=== PATIENT | female | born 1945 | race Caucasian/White ===

== ENCOUNTER 2016-10-13 16:35 | Inpatient (IN) | payer MEDICARE ==
[2016-10-13] VITALS (8 sets, daily range): BP systolic 104–128; BP diastolic 70–98; PULSE 89–113; RESP 15–28; O2SAT 93–98
[~2016-10-13] VITALS: Ht 167.6 cm; Wt 120.8 kg
[~2016-10-13 16:35] MED LIST: ALPR0.5T8 PO; ATOR10TA66 PO; FURO40SO4 PO; GLIP2.5T2 PO; HYDR-4003 PO; LISI40TA PO; METO-272 PO; SPIR25TA3 PO; WARF5TAB7 PO
--- NOTE | 2016-10-13 16:48 | ED.REPORT ---
HPI-General Illness Date of Service October 13, 2016 ED Provider: Dr. Tc Waller MD A 70 year old diabetic female with a history of atrial fibrillation, LBBB, known coronary disease (70% right coronary stenosis), heart failure, hypertension and hyperlipidemia presents to the ED via EMS following a severe episode of dizziness that began at 1000 this morning. She describes her dizziness as vertigo stating that "the room was spinning" but denies any visual disturbances or tinnitus in her ears during the episode. Patient has also been experiencing several episodes of emesis, dry mouth, generalized weakness, nausea and intermittent SOB since symptom onset. Daughter reports confusion just prior to EMS arrival. She denies any recent fevers, dysuria or localized weakness. Upon recheck, patient is complaining of sudden onset chest pain and rates the pain as a 9/10. Patient currently takes 200 mg of metoprolol succinate 2 times per day and has been taking as directed. Nursing Notes Stated Complaint: GENERALIZED WEAKNESS Chief Complaint: General Complaint Nursing Notes Reviewed: Yes Allergies: Coded Allergies: procaine (Verified Allergy, Unknown, 10/13/16) Scheduled Atorvastatin Calcium (Atorvastatin Calcium) 20 Mg Tablet 20 MG PO HS Lisinopril (Lisinopril) 40 Mg Tablet 20 MG PO HS Metoprolol Succinate ER (Metoprolol Succinate ER) 200 Mg Tab.er.24h 200 MG PO BID Spironolactone (Spironolactone) 25 Mg Tablet 12.5 MG PO DAILY Torsemide (Torsemide) 20 Mg Tablet 10 MG PO ,,,,,Sa Torsemide (Torsemide) 20 Mg Tablet 20 MG PO every wednesday Warfarin Sodium (Warfarin Sodium) 5 Mg Tablet 5 MG PO Wednesday and Wednesday Warfarin Sodium (Warfarin Sodium) 5 Mg Tablet 2.5 MG PO ,,,Sa,Bacon Scheduled PRN Alprazolam (Alprazolam) 0.5 Mg Tablet 0.5 MG PO PRN DENTIST PRN PRN DENTAL WORK General Time Seen by MD: 16:48 Chief Complaint Weakness Hx Obtained From: Patient Arrived By: Ambulance Sudden in Onset?: No Symptom Duration: Since onset Location: : Chest Quality: Painful Radiation: : Does not radiate Severity: Current: Pain level 9 out of 10 Severity: Maximum: Pain level 9 out of 10 Associated with: Reports: Chest pain, Shortness of breath, Vomiting, Weakness Pertinent Negative: Pt denies other symptoms Recent Healthcare: No recent doctor visit, No recent hospitalization Past Medical History Past Medical History Notes: PCP: Teresa DUKES 2016: Coronary angiography - 70% stenosis in the right proximal vessel Patient seen in ED 04/10/16 for Afib Echocardiogram Report Date: 03/31/2016 Interpretation Summary 1) Moderately dilated left ventricle with mild concentric hypertrophy and severely reduced systolic function (EF 20-25%). 2) Mildly dilated right ventricle with mildly reduced function. 3) Calcific mitral valve apparatus that opens well. Mild mitral regurgitation present. 4) Mildly dilated ascending aorta (diameter 3.7cm) and aortic arch (diameter 3.4cm). 5) No prior Echo available for visual comparison. Report from [facility] showed EF of 40% on Echo 12/05/2015 and today's study shows significant reduction in systolic function. Past Medical History Atrial fibrillation Coronary disease Left bundle branch block Diabetes Hypertension Hypercholesterolemia Past Surgical History Hysterectomy Laminectomy Family History Noncontributory Smoking History Current Every Day Smoker Social History Alcohol Use: Denies alcohol use Drug Use: Denies drug use Other Social History: Good social support, Local resident Ambulatory Status Independent Review of Systems Dry mouth Full Review of Systems Constitutional: Reports: Weakness - generalized, Denies: Chills, Fever Ears / Nose / Throat: Denies: Ear ringing bilateral Respiratory: Reports: Shortness of breath Cardiovascular: Reports: Chest pain (sudden onset upon recheck) GI: Reports: Nausea, Vomiting Female: Denies: Dysuria Neurologic: Reports: Confusion, Dizziness, Weakness, Denies: Focal weakness, Vision change Complete sys rev & neg: except as marked. Physical Exam Vital Signs Vital Signs Date Time Temp Pulse Resp B/P Pulse Ox O2 Delivery O2 Flow Rate FiO2 10/13/16 20:45 93 17 104/70 93 Room Air 10/13/16 19:45 102 19 109/82 93 Room Air 10/13/16 19:19 97 16 116/87 95 Room Air 10/13/16 18:03 113 28 126/98 95 10/13/16 16:37 36.5 108 22 98 Room Air Initial VS: Reviewed Neck: Supple, Non-tender, Full range of motion Extremities: Vascular intact, Neuro intact, No swelling, No tenderness Skin: Warm, Dry, No cyanosis Neurologic: Alert, Oriented, Nonfocal Psychiatric: Mood/affect normal, Behavior normal, Normal thought content General/Constitutional: Awake, Alert, No acute distress Head / Eyes: Atraumatic, Normocephalic, PERRL, EOMI Eye Movement: Positive: Nystagmus present (Left nystagmus ) ENT: Atraumatic, Airway patent, Tympanic membs NL, Ext aud canal NL Mouth: Positive: Mucous membranes dry Respiratory / Chest: Atraumatic, Breath sounds NL, Breath sounds = bilat, No respiratory distress Cardiovascular: Heart sounds NL, No gallop, No murmurs, No rubs Heart Rate / Rhythm: Positive: Irreg irregular rhythm Abdomen: Atraumatic, Soft, Non-tender, BS normoactive Neurologic: Oriented X3, Speech NL, No motor deficits, No sensory deficits, CN II - XII intact, Reflexes equal bilat NEURO: No facial droop No asymmetry present See NIH Stroke Scale in Risk for further detail Interpretation & Diagnostics MRI Brain w/o contrast Read by Radiology IMPRESSION: Normal brain MRI. Specifically, area of low density questioned in the left occipital lobe corresponds to artifact from the skull base. No acute infarction. Dictated by: Tomasz Rodriguez M.D. on 10/13/2016 at 21:44 Lab Results Interpretation Result Diagram: 10/13/16 1640 10/13/16 1640 Test 10/13/16 16:40 10/13/16 17:00 10/13/16 18:45 White Blood Count 14.1th/mm3 (3.8-10.1) Red Blood Count 5.61mil/mm3 (3.90-5.20) Hemoglobin 17.5g/dL (12.0-15.6) Hematocrit 51.3% (35.0-46.0) Mean Corpuscular Volume 91.4fL (81-100) Mean Corpuscular Hemoglobin 31.2pg (27.0-35.0) Mean Corpuscular Hemoglobin Concent 34.1% (32.0-37.0) Red Cell Distribution Width 13.9% (12.3-15.4) Platelet Count 253bil/L (150-400) Neutrophils (%) (Auto) 51.1% (40-74) Lymphocytes (%) (Auto) 37.8% (14-46) Monocytes (%) (Auto) 9.5% (4-12) Eosinophils (%) (Auto) 1.1% (0-5) Basophils (%) (Auto) 0.3% (0-3) Prothrombin Time 29.3sec (8.1-12.5) Prothromb Time International Ratio 2.68ratio Sodium Level 140mEq/L (134-144) Potassium Level 3.6mEq/L (3.5-5.2) Chloride Level 99mEq/L (97-108) Carbon Dioxide Level 22mmol/L (18-29) Blood Urea Nitrogen 33mg/dL (8-27) Creatinine 1.40mg/dL (0.57-1.00) Estimat Glomerular Filtration Rate 54mL/min (>59) Glucose Level 204mg/dL (60-99) Calcium Level 10.1mg/dL (8.5-10.1) Magnesium Level 2.2mg/dL (1.6-2.6) Total Bilirubin 0.7mg/dL (0.0-1.2) Aspartate Amino Transf (AST/SGOT) 25U/L (0-50) Alanine Aminotransferase (ALT/SGPT) 25U/L (0-32) Alkaline Phosphatase 71U/L (25-165) Total Protein 7.1g/dL (6.4-8.4) Albumin 4.0g/dL (3.4-5.0) Triglycerides Level 115mg/dL (0-149) Cholesterol Level 129mg/dL (100-199) LDL Cholesterol, Calculated 79.000mg/dL (0-99) VLDL Cholesterol 23.000mg/dL HDL Cholesterol 27mg/dL (>39) Cholesterol/HDL Ratio 4.78 (0.0-4.4) Lactic Acid Level 1.9mmol/L (0.4-2.0) Urine Color Yellow (YELLOW) Urine Appearance Clear (CLEAR,HAZY) Urine pH 5.5 (5.0-8.0) Urine Specific [place] 1.010 (1.003-1.035) Urine Protein Negativemg/dL (NEG,TRACE) Urine Glucose (UA) Negativemg/dL (NEGATIVE) Urine Ketones Negativemg/dL (NEGATIVE) Urine Occult Blood Negative (NEGATIVE) Urine Nitrite Positive (NEGATIVE) Urine Bilirubin Negative (NEGATIVE) Urine Urobilinogen Normalmg/dL (NORMAL) Urine Leukocyte Esterase Small (NEGATIVE) Urine RBC 0-2/hpf (0-2) Urine WBC 6-10/hpf (0-5) Urine Epithelial Cells Many/hpf (NONE-MOD) Urine Crystals None seen (NONE SEEN) Urine Bacteria Many/hpf (NONE-FEW) Urine Hyaline Casts Occasional/lpf (NONE) Urine Granular Casts None seen (NONE SEEN) Urine Waxy Casts None seen (NONE SEEN) Urine Red Blood Cell Casts None seen (NONE SEEN) Urine White Blood Cell Casts None seen (NONE SEEN) Urine Mucus None seen (None Seen) Urine Trichomonas None seen (NONE SEEN) Urine Yeast None (NONE SEEN) Urinalysis Comment None Urine Culture Reflexed Indicated Lab Results Interpretation: UA + Leukocytes + Nitrites Trace blood ECG Interpretation ECG Interpretation: A-fib Rate 92 LBBB Time: 17:01 Interpreted by: ED physician Normal ECG Interpretation: No change from prior ECGs (04/20/16) X-Ray Chest Interpretation Chest Xray Interpretation: IMPRESSION: Stable enlargement of the cardiomediastinal silhouette. Otherwise normal chest. Dictated by: Tomasz Rodriguez M.D. on 10/13/2016 at 17:25 Interpretation / Wet Read by: Interpret - Radiologist CT Head Interpretation IMPRESSION: 1. Low density in the left occipital lobe may represent a benign variant or subacute infarction. If clinical exam cannot differentiate these possibilities consider a head MRI with and without contrast. 2. No intracranial hemorrhage. Remainder within normal limits.. Dictated by: Tomasz Rodriguez M.D. on 10/13/2016 at 17:29 Study: Head CT no contrast Interpretation / Wet Read by: Interpret - Radiologist Re-Eval/Medical Decision Med Decision/Clinical Course 70-year-old female presenting with severe vertigo and nausea and vomiting. She experienced some sedation reportedly she had some of this prior to receiving any medications at home however was given Phenergan in the ambulance and on arrival in the emergency department so did have some sedation from that as well. Given her anticoagulated status imaging was done and there is a finding on CT questionable for subacute infarction. She is not a candidate for TPA based on time of onset and anticoagulation. She has a stroke scale of 2 however these are attributed to some confusion and some slurring of speech, both of these could be from sedating medications. She has chronic atrial fibrillation and known coronary disease she experienced chest pain while in the emergency department which resolved with nitroglycerin. There is a left bundle branch block which is old but makes interpretation of her EKG acutely much less useful. She had findings on labs consistent with a possible urinary tract infection, although she had no symptoms of this. She did get a dose of Rocephin given her age and symptoms of general weakness and vomiting. The patient is now pain-free. MRI brain has been ordered and is pending. She will be admitted to the hospitalist service. Time of Eval: 18:01 Patient Status: Condition worsened Re-Evaluation/Progress Note: Patient is currently complaining of sudden onset chest pain. A-fib 110 upon recheck. Time of Eval: 19:59 Patient Status: Condition improved Re-Evaluation/Progress Note: Patient is rechecked. She reports that her symptoms have improved and her chest pain has completely resolved. She denies any current dizziness. She is currently leaning to her left side and reports that it is due to photphobia. RECHECK PEX Cardio: Regular rhythm, rate and sounds No mumurs, rubs or gallops Patient agrees to have an MRI performed. Code status is discussed in the presence of family. Patient would like to be DNR. Consultation : Referral / Consult Name: Trey Eckert MD Consulted With: Hospitalist Call Returned at: 20:32 Regulatory Services Consultant: Will see patient, Agrees with eval, Agrees with plan, Accepts admit Counseled Regarding: Diagnosis, Lab results, Need for admission Discharge & Departure Primary Impression: Chest pain Chest pain type: unspecified Qualified Code: R07.9 - Chest pain, unspecified Additional Impressions: Atrial fibrillation with rapid ventricular response Urinary tract infection Urinary tract infection type: site unspecified Hematuria presence: without hematuria Qualified Code: N39.0 - Urinary tract infection, site not specified Vertigo Disposition: ADMITTED TO HOSPITAL Discharge Condition All VS Reviewed: Yes Condition: Stable Referrals: Teresa Darden PA-C (PCP) Reginaibsara Attestation Portions of this note were transcribed by Kiera Patel. IDr. Waller personally performed the history, physical exam and medical decision-making; I reviewed and confirmed the accuracy of the information in the transcribed note. Signed by: Kori Mcgowan, 10/13/16 [id number]. copies to: Teresa Darden PA-C Risk Factors )( TPA Administration/Criteria Stroke Thrombolytic Therapy : TPA Considered: No TPA Administered Intravenously: No, not indicated NIH Stroke Scale Level of Consciousness: Not alert, arousable (1) Ask Month & Age: Both questions right (0) Open/Close Eyes/Hand Editorial Director: Performs both tasks (0) Horizontal EO Movements: None (0) Visual Jean: No visual loss (0) Facial Palsy: Normal symmetry (0) Right Arm Motor Drift (10s): No drift 10 sec (0) Left Arm Motor Drift (10s): No drift 10 sec (0) Right Leg Motor Drift (5s): No drift 5 sec (0) Left Leg Motor Drift (5s): No drift 5 sec (0) Limb Ataxia FNF/Heel-Rangel: No ataxia (0) Sensation (Arms/Legs/Face): No sensory loss (0) Language Aphasia: No aphasia, normal (0) Dysarthria: No dysarthria, normal (0) Extinction/Inattention: No exctinct/inattent (0) NIHSS Score: 1 Time NIHSS Performed: 20:07 )( CVA Risk Stratification Age >60 Atrial fibrillation Diabetes mellitus Hyperlipidemia Hypertension Smoking Risk factors reviewed Tc Waller MD October 13, 2016 16:48 KIERA PATEL October 13, 2016 17:07
[2016-10-13] MEDS ORDERED: Promethazine Inj 12.5 MG in 0.9% Sodium Chloride-Pha MIX 100 ML IV ONE (16:50)
[2016-10-13 16:52] LABS: BASOPHILS % (AUTO) 0.3 % (0-3); EOSINOPHILS % (AUTO) 1.1 % (0-5); MONOCYTES % (AUTO) 9.5 % (4-12); Mean Corpuscular Hemoglobin 31.2 pg (27.0-35.0); Mean Corpuscular Volume 91.4 fL (81-100); NEUTROPHILS % (AUTO) 51.1 % (40-74); Platelet Count 253 bil/L (150-400)
[2016-10-13 17:07] LABS: INR 2.68 ratio
[2016-10-13 17:18] LABS: TROPONIN T < 0.010 ug/L (0.0-0.011)
[2016-10-13 17:24] LABS: Magnesium 2.2 mg/dL (1.6-2.6)
--- NOTE | 2016-10-13 17:33 | DRSVH ---
PROCEDURE: X-RAY CHEST ONE VIEW, PORTABLE ([id number]) INDICATIONS: dizzy TECHNIQUE: One view of the chest was acquired. COMPARISON: [facility], CR, XR CHEST 1VW (PORTABLE), 04/13/2016, 9:49. FINDINGS: Surgical changes and devices: None. Lungs and pleura: No pleural effusions or pneumothorax. Lungs are clear. Mediastinum: Stable enlargement of the cardiomediastinal silhouette. Bones and chest wall: No suspicious bony lesions. Overlying soft tissues appear unremarkable. IMPRESSION: Stable enlargement of the cardiomediastinal silhouette. Otherwise normal chest. Dictated by: Tomasz Rodriguez M.D. on 10/13/2016 at 17:25 Approved by: Tomasz Rodriguez M.D. on 10/13/2016 at 17:26
--- NOTE | 2016-10-13 17:39 | DRSVH ---
PROCEDURE: CT BRAIN WITHOUT CONTRAST ([id number]) INDICATIONS: vomiting, anticoagulated TECHNIQUE: Noncontrast 4.5 mm thick angled axial sections acquired from the foramen magnum to the vertex, with c oronal reformats. COMPARISON: None. FINDINGS: Image quality: Excellent. CSF spaces: Basal cisterns are patent. No extra-axial fluid collections. Ventricles are normal in size and shape. Brain: No midline shift. No intracranial masses or hemorrhage. There is decreased density and a poo rly seen white/stroud matter junction in the left occipital lobe (se 2 im 11). Skull and face: Calvarium and visualized facial bones are intact, without suspicious lesions. Sinuses: Visualized sinuses and mastoids are clear. IMPRESSION: 1. Low density in the left occipital lobe may represent a benign variant or subacute infarction. If c linical exam cannot differentiate these possibilities consider a head MRI with and without contrast. 2. No intracranial hemorrhage. Remainder within normal limits.. Dictated by: Tomasz Rodriguez M.D. on 10/13/2016 at 17:29 Approved by: Tomasz Rodriguez M.D. on 10/13/2016 at 17:32
[2016-10-13] MEDS: MeTOProlol 1 mg/mL 5 mL Inj IVPUSH SCH ×3 (18:24→19:09)
[2016-10-13 19:06] LABS: APPEARANCE,URINE CLEAR (CLEAR,HAZY); COLOR,URINE YELLOW (YELLOW); OCCULT BLOOD,URINE NEGATIVE (NEGATIVE); PH,URINE 5.5 (5.0-8.0); UROBILINOGEN,URINE NORMAL (NORMAL)
[2016-10-13] MEDS ORDERED: cefTRIAXone Inj 2,000 MG in Dextrose 5% Minibag Plus 50 ML IV ONE (20:25)
[2016-10-13] MEDS ORDERED: Ondansetron 2 mg/mL 2 mL Inj IVPUSH PRN (20:40)
[2016-10-13] MEDS ORDERED: Labetalol 5 mg/mL 4 mL Inj IVPUSH PRN (20:40)
[2016-10-13] MEDS ORDERED: Polyethylene Glycol (PEG) 17 Gm Powder PO PRN (20:40)
[2016-10-13] MEDS ORDERED: Alum-Mag Hydrox-Simeth 30 mL Suspension PO PRN (20:40)
[2016-10-13] MEDS ORDERED: Glucose 40% Oral Gel 15 Gm Tube PO PRN (20:55)
[2016-10-13] MEDS ORDERED: TORS20TA3 PO ×2 (21:10)
[2016-10-13] MEDS ORDERED: METO200T32 PO (21:10)
[2016-10-13] MEDS ORDERED: ATOR20TA65 PO (21:10)
[2016-10-13] MEDS ORDERED: 0.9% Sodium Chloride 1,000 ML IV SCH (21:30)
--- NOTE | 2016-10-13 21:54 | DRSVH ---
PROCEDURE: MRI BRAIN WITHOUT CONTRAST ([id number]) INDICATIONS: dizziness possible cva on ct TECHNIQUE: Noncontrast axial T1 spin echo, axial T2 fast spin echo, sagittal and axial FLAIR, coronal T2 fast sp in echo, axial gradient echo, axial diffusion and ADC through the brain. COMPARISON: CT from October 13, 2016.. FINDINGS: Image quality: Excellent. CSF Spaces: Basal cisterns are patent. No extra-axial fluid collections. Ventricles are normal in size and shape. Brain: No intracranial masses or hemorrhage. Hernandez/white matter interface is normal. Brainstem appe ars normal. Diffusion-weighted images demonstrate no acute ischemic insult. No chronic ischemic ins ults. Normal intravascular flow voids are present. Skull and face: Calvarium has normal marrow signal. Orbits appear normal. Sinuses: Sinuses and mastoids are clear. IMPRESSION: Normal brain MRI. Specifically, area of low density questioned in the left occipital lobe corresponds to artifact from the skull base. No acute infarction. Dictated by: Tomasz Rodriguez M.D. on 10/13/2016 at 21:44 Approved by: Tomasz Rodriguez M.D. on 10/13/2016 at 21:48
--- NOTE | 2016-10-13 22:09 | PCM.HPMED ---
Subjective Date of Service October 13, 2016 Primary Provider: Admitting Physician: Trey Eckert MD Primary Care Physician: Teresa Darden PA-C Attending Physician: Trey Eckert MD Chief Complaint: "Fear of passing out." History of Present Illness: Ms. Betty Gonzales is a pleasant 70-year-old lady brought to the [facility] emergency department by way of EMS for increasing episodes of dizziness, fatigue , nausea, and fear of passing out in front of grandchildren. She has a past medical history significant for diabetes, A. fib on warfarin, left bundle branch block, coronary artery disease, heart failure with reduced ejection fraction, hypertension, hyperlipidemia. Mrs. Gonzales reports feeling weak, dizzy, and nauseous since this morning around 10. She describes an episode of near syncope while sitting and another around 3 PM while standing. She reports onset of sudden onset chest pain in the emergency department rated as 9/10, mild dizziness and fatigue, dyspnea on exertion, mild nausea and vomiting. She denies headache, change in vision, fever, chills, shortness of breath at rest, palpitations, abdominal pain, change in bowel or bladder function, dysuria, hematuria, hematochezia, limb weakness, difficulty with word finding. She notes that she limits her water intake and liquid intake to 7 cups a day due to her congestive heart failure. She smokes 10 cigarettes a day and has for a while. She denies alcohol or other recreational/herbal drugs/medicines. She denies sick contacts. She reports being compliant on medications. Patient lives in [place] with granddaughter. Patient currently takes 200 mg of metoprolol succinate 2 times per day and has been taking as directed. Upon arrival of the [facility] emergency department: Vitals were as follows; temperature 36.5 C, pulse 108, respiratory rate 22, blood pressure 126/98, pulse ox 98% on room air. CBC; white cell count 14.1, hemoglobin 17.5, platelets 253, neuts 51%, lymphs 37 %. CMP sodium 140, potassium 3.6, chloride 99, CO2 22, BUN 33, creatinine 1.4, glucose 204, A1c pending, lactic acid 1.9, calcium 10.1, magnesium 2.2. AST/ALT /alk phosphatase 25/25/71, troponin 0.010. UA - yellow, clear, positive nitrite, small leukocyte esterase, 6-10 WBC, many epithelial, many bacteria. EKG- left bundle branch block and A. fib. Rate 110. Chest x-ray showed cardiomegaly, CT without contrast brain showed no acute bleed, Low density in the left occipital lobe may represent a benign variant or subacute infarction. If clinical exam cannot differentiate these possibilities consider a head MRI with and without contrast. MRI brain brain ordered and pending. In the emergency department the patient received metoprolol 5 mg every 5 IV, nitroglycerin patch, Phenergan, IV Ceftriaxone. Review of Systems: A comprehensive review of systems was conducted with the patient and found to be negative except as above in the History of Present Illness. Allergies Coded Allergies: procaine (Verified Allergy, Unknown, 10/13/16) Home Medications Scheduled Atorvastatin Calcium (Atorvastatin Calcium) 10 Mg Tablet 10 MG PO HS Furosemide (Furosemide) 40 Mg/4 Ml Solution 40 MG PO DAILY Glipizide ER (Glipizide ER) 2.5 Mg Tab.er.24 2.5 MG PO QAM Hydrocodone-Acetaminophen 5-325 mg (Hydrocodone-Acetaminophen 5-325 mg) 1 Each Tablet 1 TAB PO HS Lisinopril (Lisinopril) 40 Mg Tablet 40 MG PO HS Metoprolol Succinate ER (Metoprolol Succinate ER) 50 Mg Tab.er.24h 150 MG PO BID Spironolactone (Spironolactone) 25 Mg Tablet 12.5 MG PO DAILY Warfarin Sodium (Warfarin Sodium) 5 Mg Tablet 5 MG PO , , Warfarin Sodium (Warfarin Sodium) 5 Mg Tablet 2.5 MG PO , , , Scheduled PRN Alprazolam (Alprazolam) 0.5 Mg Tablet 0.5 MG PO PRN DENTIST PRN PRN DENTAL WORK PMH Atrial fibrillation Coronary disease Left bundle branch block Diabetes Hypertension Hypercholesterolemia Surgical History Past Surgical History Hysterectomy Laminectomy 2016: Coronary angiography - 70% stenosis in the right proximal vessel Family History Father of SCC with mets to brain Mother of stroke Social History Hx Alcohol Use: No Hx Substance Use: No Hx Tobacco Use: Yes (10 cigs per day, "for awhile") Smoking Status: Current Every Day Smoker (10 cigs per day "for a while.") Exam Vital Signs Vital Sign - Last Date Time Temp Pulse Resp B/P Pulse Ox O2 Delivery O2 Flow Rate FiO2 10/13/16 20:45 93 17 104/70 93 Room Air 10/13/16 16:37 36.5 Exam General: Elderly obese lady lying in bed in no acute distress, appearing fatigued, with slowed responses unsure baseline. HEENT: Normocephalic, atraumatic. External ears without defect. Pupils equal, round, and reactive to light and accommodation. Anicteric sclerae, moist conjunctivae, and no lid lag. Oropharynx free of erythema and cobble stoning with dry mucosa. Neck: Supple with full range of motion. Neck girth large, No jugular venous distension. No bruits. No lymphadenopathy or thyromegaly. Cardiovascular: Irregularly irregular rate and rhythm with no murmurs, rubs, or gallops appreciated Pulmonary: Clear to auscultation bilaterally with no crackles, wheezes, or rhonchi. Normal respiratory effort with no use of accessory muscles. Abdomen: Bowel tones present. Soft, nontender, obese with increased central adiposity, nondistended. No hepatosplenomegaly or masses appreciated. Extremities: No clubbing, cyanosis, mild pitting edema to the knees bilaterally , or lymphadenopathy appreciated. Skin: Normal temperature, turgor, and texture; no rash, ulcers, or subcutaneous nodules appreciated. Right medial malleolus area slow healing wound. Neurological: Cranial nerves grossly intact. Normal muscle strength, tone, and bulk. Reflexes, coordination, and sensory function within normal limits. Uses frontwheel walker outside of the home. Psychiatric: Normal mood and affect. Alert and oriented to person, place, and time. Lab and Diagnostics Result Diagram: 10/13/16 1640 10/13/16 1640 Assessment & Plan Ms. Betty Gonzales is a pleasant 70-year-old lady brought to the [facility] emergency department by way of EMS for increasing episodes of dizziness, fatigue , nausea, and fear of passing out in front of grandchildren. She has a past medical history significant for diabetes, A. fib on warfarin, left bundle branch block, coronary artery disease, heart failure with reduced ejection fraction, hypertension, hyperlipidemia. Mrs. Gonzales reports feeling weak, dizzy, and nauseous since this morning around 10. She describes an episode of near syncope while sitting and another around 3 PM while standing. She reports onset of sudden onset chest pain in the emergency department rated as 9/10, mild dizziness and fatigue, dyspnea on exertion, mild nausea and vomiting. She denies headache, change in vision, fever, chills, shortness of breath at rest, palpitations, abdominal pain, change in bowel or bladder function, dysuria, hematuria, hematochezia, limb weakness, difficulty with word finding. Additionally the patient daughter reports brief episodes in the emergency department emergency of tremulousness and diffuse widespread joint pain in addition to her chest pain. She notes that she limits her water intake and liquid intake to 7 cups a day due to her congestive heart failure. She smokes 10 cigarettes a day and has for a while. She denies alcohol or other recreational/herbal drugs/medicines. She denies sick contacts. She reports being compliant on medications, however she cannot remember if she took 2 days daily medications. 1. Presyncope, present on admission. Active. - Differential includes cardiogenic versus intravascular depletion, infectious etiology UTI or Vertigo - CT as above shows possible stroke - Nothing by mouth for now. - MRI- shows no acute infarct. - Ur Na/Cr and Ser Na/Cr ordered. - Remote telemetry ordered. - Orthostatic blood pressure ordered. - Rapid Flu pending. 2. Atrial fibrillation with RVR, on chronic warfarin, present on admission. Active. - Continue home metoprolol succinate 200 mg twice a day. - Continue warfarin per pharm. 3. Acute on Chronic kidney injury, present on admission. Active. - Creatinine 1.40 on admission, BUN 33. - Baseline creatinine around 1.09. - Continue gentle IV fluids, however we will want to avoid fluid overload with hx of severe congestive heart failure. 4. Urinary tract infection present on admission. Active. - Patient received IV ceftriaxone in the emergency part. - continue antibiotics will waiting for Urine culture 5. Coronary artery disease, present on admission. Active. - Received aspirin - Troponins 2 every 6 hours negative. - Lipid panel ordered. - Continue home atorvastatin 20mg daily. 6. Heart failure with reduced ejection fraction, present on admission. Active. - Echo from 03/31/2016 showed 20-25% ejection fraction. - Gentle fluids. - Hold home torsemide, spironolactone, lisinopril for now. - Consider consulting Cardiology. 7. Uvd-Oadfobl-wnusydxlw diabetes, present on admission. Active. - Continue correctional and nutritional insulin. - Holding home glipizide. - Diabetic diet when appropriate. - A1c pending. - Glucose on admission was 204. 8. Obesity. Present on admission. Active. - PT ordered. Acetaminophen for mild pain when necessary. Bowel regimen Senna and MiraLAX scheduled and PRN. Zofran when necessary for nausea and vomiting. SubQ heparin held for now. SCDs in place. High-risk medications Warfarin IV morphine PRN. Disposition: Patient has been admitted under inpatient status. Discharge is dependent upon cardiac and neurologic status. Discharge home when medically stable. Pain Evaluation: Adequate Pain Control Resuscitation Status: DNR/DNI:Do Not Resuscitate/Intubate Attending Statement The patient was seen and examined together with Dr. Camarillo on 10/13 and I agree with the history, exam and plan as outlined in the note above. JOHN CAMARILLO DO October 13, 2016 21:28 Trey Eckert MD October 14, 2016 01:08 JOHN CAMARILLO DO October 13, 2016 21:28 Trey Eckert MD October 14, 2016 01:08 JOHN CAMARILLO DO October 13, 2016 21:28 Trey Eckert MD October 14, 2016 01:08
--- NOTE | 2016-10-13 22:41 | PCM.CONPHA ---
Assessment/Plan Assessment/Plan ANTICOAGULATION MANAGEMENT BY PHARMACY -INDICATION: AFIB -HOME DOSE: 5 MG MON,WED,FRI, 2.5 MG TUE,THUR,SAT,SUN -CONCURRENT ANTICOAGULATION: ASA 300 MG -COAG TRENDS: Date -September INR 2.68 -[id number] SCORE: 3 PLAN: Patient is very confused and does not remember if she took her home dose tonight so since her INR is in range we will skip her dose in the hospital and continue to dose tomorrow based on her INR trends. Pharmacy appreciates consult and will continue to monitor. THANKS! Raquel Saba PharmD October 13, 2016 22:41
[2016-10-13] MEDS: Insulin LISPRO 300 Unit/3 mL Inj SUBQ SCH (23:21)
--- NOTE | 2016-10-13 23:48 | NUR ---
Admission: Pt admitted to room 3015 at 2205. Pt mildly sedated post medications received in ED. Speech noted to be mumbled; the pt does follow commands and is noted to be oriented. However, unable to keep pt's attention. Telemetry placed on the pt and noted to be in AFib with an IVCD; HR in the 90s. VSS. Initial assessment completed as charted. Admission completed with the daughter. Bed in the low and locked position. Dr. Mortensen came to the bedside and updated daughter and reviewed POC with nursing. Pt NPO at this time due to pt's sedation and inability to keep pt's attention. Will hold PO meds until pt cleared. Call light within reach. Will cont. to closely monitor.
[2016-10-14] VITALS (12 sets, daily range): BP systolic 106–134; BP diastolic 73–91; PULSE 57–103; RESP 12–19; O2SAT 96–98
--- NOTE | 2016-10-14 03:15 | NUR ---
Urinary Retention: P: Pt voided 150 mls per bedpan. Pt bladder scanned for PVR, scan indicated 764 mls of urinary retention. I: I&O cath performed per MD orders. 400 mls of clear dark yellow urine emptied. E: Will cont. to monitor and update oncoming staff for the need of q 6 hour bladder scans.
--- NOTE | 2016-10-14 05:22 | NUR ---
Rhythm and Rate: Pt's Afib has remained in a controlled rate in the 60s to 70s over the night.
--- NOTE | 2016-10-14 06:18 | NUR ---
Orthostatics completed see Vital Signs in interventions. Addendum: 10/14/16 at 0619 by BLANE COLEMAN RN Amended: Links added.
--- NOTE | 2016-10-14 06:46 | NUR ---
Urinary Retention Continued: P: Pt assisted up to the [facility] to void; Pt only voided 25 mls of urine. I: Pt bladder scanned. PVR = 565 mls E: Dr. Mortensen paged as to whether to cont. to straight cath or place flores catheter. Awaiting response. Addendum: 10/14/16 at 0708 by BLANE COLEMAN RN Addendum: Dr. Mortensen returned page: Continue with straight cath per parameters.
[2016-10-14] MEDS: Insulin LISPRO 300 Unit/3 mL Inj SUBQ SCH ×4 (08:00→22:00)
[2016-10-14 08:25] LABS: BASOPHILS % (AUTO) 0.2 % (0-3); EOSINOPHILS % (AUTO) 1.8 % (0-5); Mean Corpuscular Hemoglobin 30.9 pg (27.0-35.0); Mean Corpuscular Volume 92.6 fL (81-100); NEUTROPHILS % (AUTO) 57.2 % (40-74); Platelet Count 165 bil/L (150-400)
[2016-10-14] MEDS ORDERED: Heparin 5,000 Unit/mL Inj SUBQ SCH (08:30)
[2016-10-14] MEDS ORDERED: cefTRIAXone Inj 1,000 MG in Dextrose 5% Minibag Plus 50 ML IV SCH (08:30)
[2016-10-14 08:58] LABS: INR 2.67 ratio
[2016-10-14 09:10] LABS: TROPONIN T < 0.010 ug/L (0.0-0.011)
[2016-10-14] MEDS ORDERED: 0.9% Sodium Chloride 250 ML ONE (09:15)
--- NOTE | 2016-10-14 10:19 | NUR ---
Evaluation completed. Please go to "Notes" then click on "Assessments and Notes" (bottom left corner of screen). Then select appropriate discipline tab on top of screen.
--- NOTE | 2016-10-14 11:11 | NUR ---
Evaluation completed. Please go to "Notes" then click on "Assessments and Notes" (bottom left corner of screen). Then select appropriate discipline tab on top of screen.
--- NOTE | 2016-10-14 11:22 | NUR ---
Evaluation completed. Please go to "Notes" then click on "Assessments and Notes" (bottom left corner of screen). Then select appropriate discipline tab on top of screen.
--- NOTE | 2016-10-14 15:12 | NUR ---
Social Work: Initial Assessment Data: Pt is a 70 y/o female admitted for CP, AFIB with RVR, vertigo, and UTI. Pt's PCP is Dr Darden, pt's insurance is [facility] [place] Medicare. EMR reviewed. Readmit score not listed. INTERACTIVE MEDIA SPECIALIST met with pt at bedside, role explained. Pt states that she lives in [place] with her granddaughter in a single story home with 4 stairs to enter. She reports that she uses a FWW on occasion and drives, has no hx of HH or SNF, no LTC or VA benefits, and is not a caregiver. Pt reports she has been up and independent in the room. Pt currently on IVABX, INTERACTIVE MEDIA SPECIALIST will continue to follow for possible IVABX need at d/c. INTERACTIVE MEDIA SPECIALIST will continue to follow. Assessment: Pt who is independent at baseline. Plan: Pt will d/c home via POV when medically stable. Pt currently on IVABX, INTERACTIVE MEDIA SPECIALIST will continue to follow for possible IVABX need at d/c. INTERACTIVE MEDIA SPECIALIST will continue to follow. MARCOS Garcia Addendum: 10/14/16 at 1514 by NORIS RAMIREZ Amended: Links added.
[2016-10-14] MEDS ORDERED: Ondansetron 2 mg/mL 2 mL Inj IVPUSH PRN (16:20)
[2016-10-14] MEDS ORDERED: Polyethylene Glycol (PEG) 17 Gm Powder PO PRN (16:20)
[2016-10-14] MEDS ORDERED: Alum-Mag Hydrox-Simeth 30 mL Suspension PO PRN (16:20)
--- NOTE | 2016-10-14 16:22 | PCM.PHAPRO ---
Progress "Fear of passing out. WARFARIN MANAGEMENT PER PHARMACY [facility] Date -October 14-September INR 2.68 2.67 INR change -0.01 Warf Dose ? 5MG A/P -Therapeutic INR with no dose given inpatient last PM due to unclear report from pt if dose was taken prior to admit. No s/s of bleeding noted -Will continue with home regimen of 5 mg this evening. Talha Harding, PharmD Talha Harding October 14, 2016 16:22
--- NOTE | 2016-10-14 16:26 | PCM.PNMED ---
Subjective Date of Service October 14, 2016 Subjective says overall feeling better. Denies any new issues/complaints Exam Vital Signs Vital Sign - Last Date Time Temp Pulse Resp B/P Pulse Ox O2 Delivery O2 Flow Rate FiO2 10/14/16 13:15 36.4 75 18 112/83 97 Room Air 10/14/16 05:37 2.00 Intake and Output 10/13/16 10/13/16 10/14/16 Cumulative From/Thru 15:00 23:00 07:00 10/13/16 16:37 - 10/14/16 06:45 Intake Total 770 ml 770 ml Output Total 575 ml 575 ml Balance 195 ml 195 ml Intake Oral 120 ml 120 ml IV Total 650 ml 650 ml Output Urine Total 575 ml 575 ml General: Alert, Cooperative, No Acute Distress Head: Normal Eyes: Scleral Anicteric Nose: Mucous Membr Moist/[place] Mouth: Mucous Membr Moist/[place] Neck: Supple Chest & Lungs: Chest Wall Normal, Clear to auscultation & percussion Cardiovascular: Regular Rate/Rhythm Abdomen: Non-tender, Non-distended, Normoactive bowel tones, Soft Extremities: No cyanosis/clubbing/edma bilat Neurological: Grossly Neurologically Intact, Normal Speech IVs and Medications Medications Reviewed: Medications were reviewed in detail Lab and Diagnostics Result Diagram: 10/14/1681410/14/16814 Assessment & Plan 70-year-old lady brought to the [facility] emergency department by way of EMS for increasing episodes of dizziness, fatigue, nausea, and fear of passing out in front of grandchildren. She has a past medical history significant for diabetes, A. fib on warfarin, left bundle branch block, coronary artery disease , heart failure with reduced ejection fraction, hypertension, hyperlipidemia. # Acute Presyncope, present on admission. Improving - Likely due to underlying dehydration and intravascular depletion as well as underlying infection / UTI - MRI- shows no acute infarct. - Continue with IVF - Treat UTI - PT eval # Acute urinary tract infection present on admission. Active. - Continue with IV ceftriaxone - Followup final culture results. # Chronic atrial fibrillation with acute RVR, present on admission. Improved - Continue home metoprolol succinate 200 mg twice a day. # Chronic anticoagulation with Warfarin. poa. - INR therapeutic - Continue warfarin per pharm. # Acute on Chronic kidney injury, present on admission. Improving - Continue gentle IV fluids, however we will want to avoid fluid overload with hx of severe congestive heart failure. # Coronary artery disease, present on admission. stable. - Received aspirin - Continue home atorvastatin 20mg daily. # Chronic systolic heart failure with reduced ejection fraction, present on admission. stable. - Echo from 03/31/2016 showed 20-25% ejection fraction. - Gentle fluids. - Resume home torsemide, spironolactone, lisinopril in am # Zjx-Vhfxbxd-udxwwnvux diabetes, present on admission. Active. - Continue correctional and nutritional insulin. - Holding home glipizide. - Diabetic diet - A1c # Obesity. Chronic Dispo: 1-2 days Resuscitation Status: DNR/DNI:Do Not Resuscitate/Intubate Adiel Mccormick October 14, 2016 16:26
--- NOTE | 2016-10-14 19:23 | NUR ---
Post residual void Post residual void performed once this shift and was 56cc. Pt had adequate urine output. ABX for UTI. continuing to monitor.
--- NOTE | 2016-10-14 19:24 | NUR ---
Mentation Pt AOX3. Cooperative with care. Neuro checks normal today. This evening when giving meds she was upset about her normal routine in meds being changed around. Explained that when pts are admitted to hospital unfortunately sometimes meds are scheduled at different times. Pt understood, yet still frustrated. Pt stated she had ordered dinner, a hamburger with a side. Her dinner never showed up. Pt upset, during introductory rounds pt asking for discharge orders as she can "sit at home and do the same thing" she states she doesn't want to leave AMA because she needs her script for ABX. Oncoming RN working with charge to come up with plan of care.
[2016-10-14] MEDS: MeTOProlol XL 50 mg ER24 Tablet PO SCH (20:30)
[2016-10-14] MEDS ORDERED: HYDROcodone-APAP 5-325 mg Tablet PO PRN (22:40)
[2016-10-15 02:22] VITALS: BP 109/76; PULSE 89; RESP 22; O2SAT 98
--- NOTE | 2016-10-15 03:09 | NUR ---
Blood pressure patients blood pressure 106/52. HR 80's. notified MD. states ok to hold HS metoprolol 200mg and give lisinopril 20mg. patient only wanted half of her lisinopril. at 0300, patient up to bathroom HR 150's with activity. vitals stable HR 80's at rest BP 109/72. will continue to monitor. patient non-symptomatic. denies any pain/discomfort.
[2016-10-15 05:46] VITALS: PULSE 100
[2016-10-15 06:30] VITALS: BP 115/78; PULSE 72; RESP 21; O2SAT 97
[2016-10-15 07:01] LABS: Mean Corpuscular Hemoglobin 30.5 pg (27.0-35.0); Mean Corpuscular Volume 88.1 fL (81-100)
[2016-10-15 07:18] LABS: INR 2.52 ratio
[2016-10-15 08:00] VITALS: PULSE 96
[2016-10-15] MEDS: Insulin LISPRO 300 Unit/3 mL Inj SUBQ SCH (08:00)
[2016-10-15] MEDS ORDERED: cefTRIAXone Inj 2,000 MG in Dextrose 5% Minibag Plus 50 ML IV SCH (08:30)
[2016-10-15 09:55] VITALS: BP 105/73; PULSE 92; RESP 20; O2SAT 95
[2016-10-15] MEDS ORDERED: CEFD300C3 PO (10:41)
[2016-10-15] MEDS: MeTOProlol XL 50 mg ER24 Tablet PO SCH (10:44)
--- NOTE | 2016-10-15 10:46 | PCM.DIMED ---
Discharge Instructions Date of Service October 15, 2016 Dates of Hospitalization October 13, 2016 at 21:11 Discharge Diagnosis Discharge Diagnosis # Acute Presyncope, present on admission. Resolved - Likely due to underlying dehydration and intravascular depletion as well as underlying infection / UTI # Acute E. Coli urinary tract infection (UTI) present on admission. # Chronic atrial fibrillation with acute rapid ventricular response (RVR), present on admission. Resolved. # Chronic anticoagulation with Warfarin. - INR therapeutic on day of discharge at 2.52 # Acute dehydration, present on admission. Improved # Acute on Chronic kidney injury, present on admission. Resolved. # Coronary artery disease, present on admission. stable. # Chronic systolic heart failure with reduced ejection fraction, present on admission. stable. - Echo from 03/31/2016 showed 20-25% ejection fraction. # Pkh-Rokfkcw-axymmmbep diabetes, present on admission. Active. - HgA1C 7.9 suggesting sub-optimal control and requiring further close followup with primary care provider for further management Diet Discharge Diet: Low fat, Low Sodium, Heart Healthy, Diabetic Activity Discharge Activity: No restrictions Call your provider Call your provider for: Fever or Chills, Shortness of breath, Chest pain, Vomitting, Excessive diarrhea Patient Instructions Patient Instructions Seek immediate medical attention if any new or worsening signs or symptoms occur. Follow-up plan 1. Followup with primary care provider in 4-7 days and to recheck your INR while on antibiotics. Follow-up Provider: Teresa Darden PA-C, [place] October 15, 2016 10:46
--- NOTE | 2016-10-15 10:57 | NUR ---
Social Work: Discharge Data: Pt is on day 2 of hospitalization. EMR reviewed. D/C orders are in. Pt now has POABX, no IVABX need at d/c. No LINE DIRECTOR or d/c planning needs identified at thist lex. LINE DIRECTOR will continue to follow if needs arise. Assessment: Pt who is independent at baseline. Plan: Pt will d/c home via POV today. Pt now has POABX, no IVABX need at d/c. No LINE DIRECTOR or d/c planning needs identified at thist lex. LINE DIRECTOR will continue to follow if needs arise. MARCOS Garcia
--- NOTE | 2016-10-15 12:35 | NUR ---
Discharge Pt. discharged to home with all her belongings from room [address] [facility]. Pts. son came and picked her up. Pt. was given educational material on new prescription cefdinir as well as information on Afib, chest pain, and UTI for women. Pt. was also instructed to follow up with her primary care provider in 4-7 days and to also check her INR while on the antibiotic. Pt. stated she understood and would make the appointment when she got home.
--- NOTE | 2016-10-15 16:13 | PCM.DC.MED ---
Discharge Summary Date of Service October 15, 2016 Dates of Hospitalization Date of Hospital Admission October 13, 2016 at 21:11 Date of Discharge: October 15, 2016 Providers: Admitting Physician: Trey Eckert MD Primary Care Physician: Teresa Darden PA-C Attending Physician: Trey Eckert MD Diagnosis at Time of Discharge Diagnosis at Time of Discharge # Acute Presyncope, present on admission. Resolved - Likely due to underlying dehydration and intravascular depletion as well as underlying infection / UTI # Acute E. Coli urinary tract infection (UTI) present on admission. # Chronic atrial fibrillation with acute rapid ventricular response (RVR), present on admission. Resolved. # Chronic anticoagulation with Warfarin. - INR therapeutic on day of discharge at 2.52 # Acute dehydration, present on admission. Improved # Acute on Chronic kidney injury, present on admission. Resolved. # Coronary artery disease, present on admission. stable. # Chronic systolic heart failure with reduced ejection fraction, present on admission. stable. - Echo from 03/31/2016 showed 20-25% ejection fraction. # Yry-Anxwnwn-iwdafhpiv diabetes, present on admission. Active. - HgA1C 7.9 suggesting sub-optimal control and requiring further close followup with primary care provider for further management Procedures XRay, CTs & MRIs Date of Service: 10/13/16 1644 PROCEDURE: X-RAY CHEST ONE VIEW, PORTABLE ([id number]) IMPRESSION: Stable enlargement of the cardiomediastinal silhouette. Otherwise normal chest. Dictated by: Tomasz Rodriguez M.D. on 10/13/2016 at 17:25 Approved by: Tomasz Rodriguez M.D. on 10/13/2016 at 17:26 Date of Service: 10/13/16 1650 PROCEDURE: CT BRAIN WITHOUT CONTRAST ([id number]) IMPRESSION: 1. Low density in the left occipital lobe may represent a benign variant or subacute infarction. If clinical exam cannot differentiate these possibilities consider a head MRI with and without contrast. 2. No intracranial hemorrhage. Remainder within normal limits.. Dictated by: Tomasz Rodriguez M.D. on 10/13/2016 at 17:29 Approved by: Tomasz Rodriguez M.D. on 10/13/2016 at 17:32 Date of Service: 10/13/162021 PROCEDURE: MRI BRAIN WITHOUT CONTRAST ([id number]) IMPRESSION: Normal brain MRI. Specifically, area of low density questioned in the left occipital lobe corresponds to artifact from the skull base. No acute infarction. Dictated by: Tomasz Rodriguez M.D. on 10/13/2016 at 21:44 Approved by: Tomasz Rodriguez M.D. on 10/13/2016 at 21:48 Brief History As noted in H&P by Dr. Camarillo: Ms. Betty Gonzales is a pleasant 70-year-old lady brought to the [facility] emergency department by way of EMS for increasing episodes of dizziness, fatigue , nausea, and fear of passing out in front of grandchildren. She has a past medical history significant for diabetes, A. fib on warfarin, left bundle branch block, coronary artery disease, heart failure with reduced ejection fraction, hypertension, hyperlipidemia. Mrs. Gonzales reports feeling weak, dizzy, and nauseous since this morning around 10. She describes an episode of near syncope while sitting and another around 3 PM while standing. She reports onset of sudden onset chest pain in the emergency department rated as 9/10, mild dizziness and fatigue, dyspnea on exertion, mild nausea and vomiting. She denies headache, change in vision, fever, chills, shortness of breath at rest, palpitations, abdominal pain, change in bowel or bladder function, dysuria, hematuria, hematochezia, limb weakness, difficulty with word finding. She notes that she limits her water intake and liquid intake to 7 cups a day due to her congestive heart failure. She smokes 10 cigarettes a day and has for a while. She denies alcohol or other recreational/herbal drugs/medicines. She denies sick contacts. She reports being compliant on medications. Patient lives in [place] with granddaughter. Patient currently takes 200 mg of metoprolol succinate 2 times per day and has been taking as directed. Upon arrival of the [facility] emergency department: Vitals were as follows; temperature 36.5 C, pulse 108, respiratory rate 22, blood pressure 126/98, pulse ox 98% on room air. CBC; white cell count 14.1, hemoglobin 17.5, platelets 253, neuts 51%, lymphs 37 %. CMP sodium 140, potassium 3.6, chloride 99, CO2 22, BUN 33, creatinine 1.4, glucose 204, A1c pending, lactic acid 1.9, calcium 10.1, magnesium 2.2. AST/ALT /alk phosphatase 25/25/71, troponin 0.010. UA - yellow, clear, positive nitrite, small leukocyte esterase, 6-10 WBC, many epithelial, many bacteria. EKG- left bundle branch block and A. fib. Rate 110. Chest x-ray showed cardiomegaly, CT without contrast brain showed no acute bleed, Low density in the left occipital lobe may represent a benign variant or subacute infarction. If clinical exam cannot differentiate these possibilities consider a head MRI with and without contrast. MRI brain brain ordered and pending. In the emergency department the patient received metoprolol 5 mg every 5 IV, nitroglycerin patch, Phenergan, IV Ceftriaxone. Hospital Course # Acute Presyncope, present on admission. Resolved - Likely due to underlying dehydration and intravascular depletion as well as underlying infection / UTI - MRI- shows no acute infarct. - Treat UTI - PT eval cleared for d/c home # Acute E. Coli urinary tract infection present on admission. Active. - Treated with IV ceftriaxone during this hospital and will d/c home with PO Cefdinir # Chronic atrial fibrillation with acute RVR, present on admission. RVR resolved. - Continue home metoprolol succinate 200 mg twice a day. # Chronic anticoagulation with Warfarin. poa. - INR therapeutic # Acute on Chronic kidney injury, present on admission. Resolved - Treated with gentle IV fluids during this hospital # Coronary artery disease, present on admission. stable. - Received aspirin - Continue home atorvastatin 20mg daily. # Chronic systolic heart failure with reduced ejection fraction, present on admission. stable. - Echo from 03/31/2016 showed 20-25% ejection fraction. - Resume home torsemide, spironolactone, lisinopril # Qsp-Joxdago-sscdpwkhv diabetes, present on admission. Active. - Continue home meds - A1c 7.9 - Further followup and management by PCP as outpatient # Obesity. Chronic Exam Vital Signs (Last) Date Time Temp Pulse Resp B/P Pulse Ox O2 Delivery O2 Flow Rate FiO2 10/15/16 09:55 36.6 92 20 105/73 95 Room Air 10/14/16 05:37 2.00 Exam General: Alert, Cooperative, No Acute Distress Head: Normal Eyes: Scleral Anicteric Nose: Mucous Membr Moist/[place] Mouth: Mucous Membr Moist/[place] Neck: Supple Chest & Lungs: Chest Wall Normal, Clear to auscultation bilat Cardiovascular: Regular Rate/Rhythm Abdomen: Non-tender, Non-distended, Normoactive bowel tones, Soft Extremities: No cyanosis/clubbing/edema bilat Neurological: Grossly Neurologically Intact, Normal Speech Test 10/13/16 16:40 10/13/16 17:00 10/13/16 18:45 10/14/16 08:15 Hemoglobin A1c 7.9% (4.8-5.6) Triglycerides Level 115mg/dL (0-149) Cholesterol Level 129mg/dL (100-199) LDL Cholesterol, Calculated 79.000mg/dL (0-99) VLDL Cholesterol 23.000mg/dL HDL Cholesterol 27mg/dL (>39) Cholesterol/HDL Ratio 4.78 (0.0-4.4) Lactic Acid Level 1.9mmol/L (0.4-2.0) Urine Color Yellow (YELLOW) Urine Appearance Clear (CLEAR,HAZY) Urine pH 5.5 (5.0-8.0) Urine Specific [place] 1.010 (1.003-1.035) Urine Protein Negativemg/dL (NEG,TRACE) Urine Glucose (UA) Negativemg/dL (NEGATIVE) Urine Ketones Negativemg/dL (NEGATIVE) Urine Occult Blood Negative (NEGATIVE) Urine Nitrite Positive (NEGATIVE) Urine Bilirubin Negative (NEGATIVE) Urine Urobilinogen Normalmg/dL (NORMAL) Urine Leukocyte Esterase Small (NEGATIVE) Urine RBC 0-2/hpf (0-2) Urine WBC 6-10/hpf (0-5) Urine Epithelial Cells Many/hpf (NONE-MOD) Urine Crystals None seen (NONE SEEN) Urine Bacteria Many/hpf (NONE-FEW) Urine Hyaline Casts Occasional/lpf (NONE) Urine Granular Casts None seen (NONE SEEN) Urine Waxy Casts None seen (NONE SEEN) Urine Red Blood Cell Casts None seen (NONE SEEN) Urine White Blood Cell Casts None seen (NONE SEEN) Urine Mucus None seen (None Seen) Urine Trichomonas None seen (NONE SEEN) Urine Yeast None (NONE SEEN) Urinalysis Comment None Urine Culture Reflexed Indicated Urine Random Creatinine 84mg/dL (15-278) Urine Random Sodium 34mEq/L Neutrophils (%) (Auto) 57.2% (40-74) Lymphocytes (%) (Auto) 30.6% (14-46) Monocytes (%) (Auto) 10.0% (4-12) Eosinophils (%) (Auto) 1.8% (0-5) Basophils (%) (Auto) 0.2% (0-3) Activated Partial Thromboplast Time 33.2sec (22.8-33.0) Magnesium Level 2.2mg/dL (1.6-2.6) Total Bilirubin 0.5mg/dL (0.0-1.2) Aspartate Amino Transf (AST/SGOT) 2U/L (0-50) Alanine Aminotransferase (ALT/SGPT) 18U/L (0-32) Alkaline Phosphatase 56U/L (25-165) Troponin T < 0.010ug/L (0.0-0.011) Total Protein 5.7g/dL (6.4-8.4) Albumin 3.5g/dL (3.4-5.0) Test 10/15/16 06:45 White Blood Count 8.8th/mm3 (3.8-10.1) Red Blood Count 5.12mil/mm3 (3.90-5.20) Hemoglobin 15.6g/dL (12.0-15.6) Hematocrit 45.1% (35.0-46.0) Mean Corpuscular Volume 88.1fL (81-100) Mean Corpuscular Hemoglobin 30.5pg (27.0-35.0) Mean Corpuscular Hemoglobin Concent 34.6% (32.0-37.0) Red Cell Distribution Width 14.1% (12.3-15.4) Platelet Count 177bil/L (150-400) Prothrombin Time 27.5sec (8.1-12.5) Prothromb Time International Ratio 2.52ratio Sodium Level 143mEq/L (134-144) Potassium Level 4.7mEq/L (3.5-5.2) Chloride Level 108mEq/L (97-108) Carbon Dioxide Level 24mmol/L (18-29) Blood Urea Nitrogen 28mg/dL (8-27) Creatinine 0.91mg/dL (0.57-1.00) Estimat Glomerular Filtration Rate 88mL/min (>59) Glucose Level 131mg/dL (60-99) Calcium Level 9.5mg/dL (8.5-10.1) Discharge Medications Discharge Medications Atorvastatin Calcium (Atorvastatin Calcium) 20 Mg Tablet 20 MG PO HS (Reported) Cefdinir (Cefdinir) 300 Mg Capsule 300 MG PO BID Prescribed by: ALEX JETT MD Lisinopril (Lisinopril) 40 Mg Tablet 20 MG PO HS (Reported) Metoprolol Succinate ER (Metoprolol Succinate ER) 200 Mg Tab.er.24h 200 MG PO BID (Reported) Spironolactone (Spironolactone) 25 Mg Tablet 12.5 MG PO DAILY (Reported) Torsemide (Torsemide) 20 Mg Tablet 10 MG PO ,,,,,Sa (Reported) Torsemide (Torsemide) 20 Mg Tablet 20 MG PO every wednesday (Reported) Warfarin Sodium (Warfarin Sodium) 5 Mg Tablet 5 MG PO Wednesday and Wednesday ( Reported) Warfarin Sodium (Warfarin Sodium) 5 Mg Tablet 2.5 MG PO ,,,, (Reported ) As needed Alprazolam (Alprazolam) 0.5 Mg Tablet 0.5 MG PO PRN DENTIST PRN PRN DENTAL WORK (Reported) Followup Plan Disposition: Home Follow-up plan 1. Followup with primary care provider in 4-7 days and to recheck your INR while on antibiotics. Discharge Diet: Low fat, Low Sodium, Heart Healthy, Diabetic Discharge Activity: No restrictions Patient Instructions Seek immediate medical attention if any new or worsening signs or symptoms occur. Follow-up Provider: Teresa Darden PA-C Time spent 35 min copies to: Teresa Darden PA-C, Masoud October 15, 2016 16:12
== END 2016-10-15 12:35 | disposition home or self-care (01) | DRG 690 ==
LOC: SED 16:35 → MPC 21:11 → OBSVTOIN 21:11
PROVIDERS: ADMIT Hospitalist; ATTEND Hospitalist
DX: N39.0 Urinary tract infection, site not specified (principal); N17.9 Acute kidney failure, unspecified; I50.22 Chronic systolic (congestive) heart failure; Z68.41 Body mass index [BMI] 40.0-44.9, adult; I10 Essential (primary) hypertension; E78.5 Hyperlipidemia, unspecified; F17.200 Nicotine dependence, unspecified, uncomplicated; I48.2 Chronic atrial fibrillation; I25.10 Atherosclerotic heart disease of native coronary artery without angina pectoris; E11.9 Type 2 diabetes mellitus without complications; E86.0 Dehydration; E66.9 Obesity, unspecified; Z66 Do not resuscitate; B96.20 Unspecified Escherichia coli [E. coli] as the cause of diseases classified elsewhere; Z79.01 Long term (current) use of anticoagulants

== ENCOUNTER 2016-12-28 01:08 | Day surgery (SDC) | payer MEDICARE ==
[2016-12-28] VITALS (19 sets, daily range): BP systolic 119–161; BP diastolic 60–97; PULSE 60–83; RESP 15–22; O2SAT 94–99
[~2016-12-28] VITALS: Ht 167.6 cm; Wt 122.8 kg
[~2016-12-28 01:08] MED LIST changes: +ASPI-973 PO; -ATOR10TA66 PO; +ATOR20TA65 PO; +DIGO250T72 PO; -FURO40SO4 PO; +GLIM2TAB2 PO; -GLIP2.5T2 PO; -HYDR-4003 PO; -METO-272 PO; +METO200T32 PO; +TORS20TA3 PO
[2016-12-28] MEDS ORDERED: 0.9% Sodium Chloride 1,000 ML IV ONE (07:00)
[2016-12-28] MEDS ORDERED: Atropine 1 mg/10 mL (Code) Syringe ONE (11:43)
[2016-12-28] MEDS ORDERED: fentaNYL-PF 50 mCg/mL 2 mL Inj ONE (11:55)
--- NOTE | 2016-12-28 15:00 | NUR ---
GUILLERMINA: Pt arrived back from [facility] [facility] at 1255 to GUILLERMINA room 3, no c/o pain, VSS on RA. R groin with star close, initially oozing, dressing changed with no further ooze. Pt on bedrest X4 hours, then to d/c home at 1900 per MD order. Pt aware and has a ride lined up to take her home. Pt tolerating po intake of clear liquids, pt is drowsy but awakens easily. Will continue to monitor.
[2016-12-28] MEDS ORDERED: CLOP75TA3 PO (15:47)
--- NOTE | 2016-12-28 16:27 | DI95 ---
[address] [address] INTERVENTIONAL CARDIAC CATHETERIZATION PATIENT: IVAN MCGINNIS : 1945 MR#: [id number] ADMIT: 12/28/2016 JOB ID: [id number] DATE OF PROCEDURE: 12/28/2016 PATIENT PROFILE: The patient is a 71-year-old lady with history of morbid obesity, hypertension, diabetes mellitus, chronic atrial fibrillation and tachycardia- mediated cardiomyopathy. She was found to have severe right coronary artery stenosis. PROCEDURE: Balloon angioplasty and stenting to the mid and proximal right coronary artery. Vascular closure device: StarClose. COMPLICATIONS: None. METHOD: Vascular access was obtained from the right groin under 1% lidocaine local anesthesia using a 6-Austrian sheath. This was performed under ultrasound guidance due to her large body size. An attempt to engage the right coronary ostium with a 6-Austrian JR4, AR1, and KR3H guides was unsuccessful. The femoral sheath was upsized to a 7-Austrian sheath. A 7-Austrian AL1 guide was advanced to the right coronary ostium. A Runthrough wire was placed inside the right coronary artery. The mid right coronary artery lesion and the proximal right coronary artery lesion were pre-dilated with a 2.5, 3.0, and a 3.5 mm balloon. A Resolute [place] 2.75 x 18 mm stent was placed inside the mid right coronary artery lesion and deployed at 25 atmospheres for 30 seconds. A 3.0 x 15 mm balloon was used for post stent deployment dilation. It was inflated up to 22 atmospheres for 30 seconds. A Xience 4.0 x 12 mm stent was placed inside the proximal right coronary artery lesion and deployed at 12 atmospheres for 30 seconds. The procedure was performed with a guide liner support. Final angiogram was obtained. Right femoral angiogram was performed. Following sheath removal, hemostasis was achieved by using a StarClose device. The patient tolerated procedure well. She was transferred to [facility] in good condition. Total contrast used 150 cc. Fluoro time is 13.1 minutes. RESULTS: Successful balloon angioplasty and stenting to the severe proximal and mid right coronary artery lesions by deploying two drug-eluting stents to achieve an excellent angiographic result with NAVIN-3 flow distally. NOTE: the procedure is somewhat complex and prolonged due to heavily calcified artery. Please use modifier code 22. MTDD
--- NOTE | 2016-12-28 18:36 | NUR ---
GUILLERMINA/Transfer: Pt up ambulating in hallway at 1700 after 4 hours of bedrest, tolerated well, initially after activity R groin site dressing C/D/I, no c/o pain. At 1800 R groin dressing bloody, changed and ooze noted, no hematoma at site. New dressing applied at 1805, pt back on bedrest, at 1825 dressing noted to have continued ooze with bloody drainage, notified and orders for bedrest until 0600 and to keep pt overnight. Report called to [facility] NINA Morris RN to assume care of pt. Pt informed of bedrest until 0600 due to ooze at site and states understanding. VSS, tele afib, no c/o pain, R pedal pulse palpable +2. Pt taken to [facility] in bed at 1835.
[2016-12-28] MEDS ORDERED: Atropine 1 mg/10 mL (Code) Syringe IVPUSH PRN (19:10)
[2016-12-28] MEDS ORDERED: 0.9% Sodium Chloride 400 ML (4 HRS) IV ONE (19:10)
[2016-12-28] MEDS ORDERED: Ondansetron 2 mg/mL 2 mL Inj IVPUSH PRN (19:10)
--- NOTE | 2016-12-28 19:13 | NUR ---
Arrival Pt arrived from [facility] at 1840 in bed. R groin dressing with quarter sized bright red blood on dressing. site is soft, no hematoma felt. Some pain with pressure but otherwise asymptomatic. No CP, no SOB. Pt tearful about having to stay on back overnight Denies pain. VSS. report given to oncoming RN.
[2016-12-28] MEDS ORDERED: 0.9% Sodium Chloride 250 ML BOLUS IV PRN (19:15)
[2016-12-28] MEDS: HYDROcodone-APAP 5-325 mg Tablet PO SCH (21:00)
[2016-12-29 02:59] LABS: Mean Corpuscular Hemoglobin 30.9 pg (27.0-35.0); Mean Corpuscular Volume 92.4 fL (81-100)
[2016-12-29 03:35] VITALS: BP 176/98; PULSE 102; RESP 20; O2SAT 95
[2016-12-29] MEDS: HYDROcodone-APAP 5-325 mg Tablet PO SCH (05:03)
--- NOTE | 2016-12-29 06:49 | NUR ---
Bedrest/Groin site A/O. Remained on bed rest through night, became tearful and uncomfortable r/t the need to lie in supine position. Medication given for associated pain, with good response. Groin site continued to ooze, dressing changed @ ~0200, currently c/d/i. Tele: Afib/flutter, IVCD, frequent PVC with rate in 80s. VSS. Pt. can now get oob, informed. Report given to on coming RN
[2016-12-29 08:10] VITALS: BP 138/83; PULSE 82; RESP 16; O2SAT 97
[2016-12-29] MEDS ORDERED: MeTOProlol XL 50 mg ER24 Tablet PO SCH (08:30)
[2016-12-29 10:38] VITALS: PULSE 81
[2016-12-29 12:03] VITALS: PULSE 88
--- NOTE | 2016-12-29 12:38 | DRSVH ---
[facility] [address] [place] [address] Echocardiogram Report Name: IVAN MCGINNIS Date: 12/28/2016 Height: 66 in Hospital Exam Location: [facility] Weight: 277 lb Gender: Female BSA: 2.3 m2 : 1945 Age: 71 yrs BP: 119/87 mmHg Reason For Study: CAD History: SMOKER-CURRENT Ordering Physician: Performed By: Dianne Farrell Referring Physician: Gerhard Quiñones Interpretation Summary The patient was in atrial fibrillation with heart rates between 69-89 bpm during the exam. Moderately dilated left ventricle with ejection fraction 20-25%. Moderate biatrial enlargement. Moderate mitral annular calcification. Mild mitral regurgitation. The right ventricular systolic pressure is estimated at 43 mmHg assuming a right atrial pressure of 15 mm Hg. The IVC is dilated (diameter is greater than 2.1 cm) and it collapses less than 50% with a sniff. This suggests a high right atrial pressure of 15 mm Hg. Comparison is made with the echocardiogram of 03/31/2016, there has been no signigficant change. Procedure: A two-dimensional transthoracic echocardiogram with color flow and Doppler was performed in limited views only. The study quality was technically adequate. Comparison is made with the echocardiogram of 03/31/2016. The patient was in atrial fibrillation with heart rates between 69 -89 bpm during the exam. Left Ventricle: The left ventricle is moderately dilated. The ejection fraction is estimated to be 20-25%. There is moderate to severe global hypokinesis of the left ventricle. Diastolic function could not be accurately assessed due to atrial fibrillation. Right Ventricle: The right ventricle grossly appears normal in size with probable normal systolic function. Atria: There is moderate biatrial enlargement. Mitral Valve: There is moderate mitral annular calcification. The mitral valve leaflets appear mildly thickened, but open well. There is mild mitral regurgitation. Aortic Valve: The aortic valve is grossly normal. There is no aortic valve stenosis. No aortic regurgitation is present. Tricuspid Valve: There is trace tricuspid regurgitation. The right ventricular systolic pressure is estimated at 43 mmHg assuming a right atrial pressure of 15 mm Hg. Great Vessels: The IVC is dilated (diameter is greater than 2.1 cm) and it collapses less than 50% with a sniff. This suggests a high right atrial pressure of 15 mm Hg. Pericardium/ Pleura There is no pericardial effusion. MMode/2D Measurements & Calculations LVIDd: 6.1 cm IVC diam EDV(MOD-sp2) LV mitchell. diameter/BSA LVIDs: 5.1 cm : 3.3 cm (cm/m^2): 2.7 FS: 16.9 % ESV(MOD-sp2) EPSS: 1.8 cm IVSd: 1.2 cm EF(MOD-sp2) LVPWd: 1.1 cm LV sys. diameter/BSA RVD1 (basal) (cm/m^2): 2.2 Doppler Measurements & Calculations Ao V2 max MV E max boom Med Peak E' Boom TR max boom : 123.9 cm/sec : 130.5 cm/sec : 266.3 cm/sec Ao max PG E/E' med: 35.3 TR max PG : 6.1 mmHg Lat Peak E' Boom : 28.4 mmHg Ao mean PG : 3.2 mmHg E/E' lat: 17.2 E/e' average: 26.3 MV dec time Ao V2 mean : 0.19 sec : 84.9 cm/sec Ao V2 VTI: 25.9 cm Electronically signed by: Kasandra Chambers on Reading Physician:12/29/2016 12:37 PM
--- NOTE | 2016-12-29 12:53 | NUR ---
Discharge Pt discharged home today at 15:45. Pt off floor via wheelchair with all belongings in the company of the [employer] and daughter to private vehicle. Pt was provided with script for plavix, follow up appt, and ed materials on meds, heart healthy diet, and angio with stent. All questions answered and pt voices understanding. Addendum: 12/29/16 at 1918 by SUGEY MA RN Pt discharged at 12:45, not 15:45
== END 2016-12-29 12:45 | disposition home or self-care (01) ==
LOC: SOUO 01:08 → PCC 18:48 → SOUO 12-29 12:45
PROVIDERS: ATTEND Internal Medicine Interventional Cardiology
DX: I25.118 Atherosclerotic heart disease of native coronary artery with other forms of angina pectoris (principal); I25.84 Coronary atherosclerosis due to calcified coronary lesion; I42.9 Cardiomyopathy, unspecified; I48.2 Chronic atrial fibrillation; I10 Essential (primary) hypertension; E11.9 Type 2 diabetes mellitus without complications; E78.5 Hyperlipidemia, unspecified; F17.210 Nicotine dependence, cigarettes, uncomplicated; Z79.84 Long term (current) use of oral hypoglycemic drugs; Z79.01 Long term (current) use of anticoagulants
CPT/HCPCS: 36415; 80048; 85027; 93005; 99152; 99153; C1725; C1760; C1769; C1874; C1887; C8924; C9600; J2060; J2250; J3010; J7030; Q9967